=== PATIENT | male | born 1955 | race African-American/Black ===

== ENCOUNTER 2018-10-30 11:01 | Emergency (ER) | payer OTHER, MEDICARE ==
[~2018-10-30] VITALS: Ht 177.8 cm; Wt 111.6 kg
[2018-10-30 11:45] LABS: BASOPHILS % 0.1 % (0.0-1.0); HEMATOCRIT 39.2 % (38.2-49.6); HEMOGLOBIN 11.5 g/dL (14.0-18.0); LYMPHOCYTES # (AUTO) 1.2 (1.0-3.2); LYMPHOCYTES % 16.4 % (18.0-39.1); MEAN CORPUSCULAR HEMOGLOBIN 28.3 pg (28-32); MEAN CORPUSCULAR HGB CONC 29.3 g/dL (31-35); MEAN CORPUSCULAR VOLUME 96.6 fL (81-99); MONOCYTES # (AUTO) 0.7 (0.2-0.8); MONOCYTES % 9.4 % (4.4-11.3); NEUTROPHILS # (AUTO) 5.4 (2.1-6.9); NEUTROPHILS % 73.7 % (38.7-80.0); PLATELET COUNT 224 x10e3/uL (140-360); RED BLOOD COUNT 4.06 x10e6/uL (4.3-5.7); RED CELL DISTRIBUTION WIDTH 16.9 % (11.7-14.4)
--- NOTE | 2018-10-30 11:58 | Diagnostic Imaging Report ---
EXAMINATION: CHEST SINGLE (PORTABLE) INDICATION: Lower extremity swelling ^ERMD ORDER ^[id number] ^1140 ^Y COMPARISON: None FINDINGS: AP view TUBES and LINES: None. LUNGS: Limited by body habitus and low lung volumes. Enlarged hilar regions. PLEURA: No pleural effusion or pneumothorax. HEART AND MEDIASTINUM: The cardiomediastinal silhouette is enlarged on this AP view. BONES AND SOFT TISSUES: No acute osseous lesion. Soft tissues are unremarkable. UPPER ABDOMEN: No free air under the diaphragm. IMPRESSION: Enlarged bilateral hilar regions, accentuated by low lung volumes and technique, could be due to tortuous vessels, adenopathy, or peribronchovascular thickening/cuffing. Underlying infiltrate cannot be excluded. Signed by: Dr. Get Lyon MD on 10/30/2018 11:55 AM
[2018-10-30 12:23] LABS: INR 1.05; PROTHROMBIN TIME 14.6 seconds (11.9-14.5)
[2018-10-30 12:24] LABS: PARTIAL THROMBOPLASTIN TIME 24.8 seconds (23.8-35.5)
[2018-10-30 12:34] LABS: ALANINE AMINOTRANSFERASE 25 IU/L (0-55); ALBUMIN/GLOBULIN RATIO 0.8 (0.8-2.0); ALKALINE PHOSPHATASE 110 IU/L (40-150); ANION GAP 13.3 mmol/L (8-16); BLOOD UREA NITROGEN 19 mg/dL (7-26); BUN/CREATININE RATIO 24 (6-25); CALCIUM 8.9 mg/dL (8.4-10.2); CARBON DIOXIDE 26 mmol/L (22-29); CHLORIDE 113 mmol/L (98-107); CREATINE KINASE 41 IU/L (30-200); CREATININE, SERUM 0.79 mg/dL (0.72-1.25); EST GLOMERULAR FILTRATION RATE > 60 ML/MIN (60-); GLUCOSE 101 mg/dL (74-118); LIPASE 30 U/L (8-78); POTASSIUM 3.3 mmol/L (3.5-5.1); SODIUM 149 mmol/L (136-145)
[2018-10-30 12:43] LABS: BILIRUBIN,URINE NEGATIVE (NEGATIVE); CLARITY,URINE HAZY (CLEAR); COLOR,URINE YELLOW (YELLOW); KETONES,URINE NEGATIVE (NEGATIVE); LEUKOCYTE ESTERASE ,URINE NEGATIVE (NEGATIVE); NITRITE,URINE NEGATIVE (NEGATIVE); PROTEIN,URINE DIPSTICK TRACE (NEGATIVE); URINE UROBILINOGEN 4 mg/dL (0.2 - 1)
[2018-10-30 12:46] LABS: BACTERIA,URINE FEW /HPF; EPITHELIAL CELLS,URINE FEW /LPF; RBC,URINE 0-5 /HPF (0-5); WBC,URINE (MAN) 0-5 /HPF (0-5)
--- NOTE | 2018-10-30 12:59 | NUR ---
pt had bowel movement 1230
[2018-10-30] MEDS ORDERED: POTASSIUM CHLO20 ME1 PO (13:11)
[2018-10-30] MEDS ORDERED: Eliquis PO (13:11)
[2018-10-30] MEDS ORDERED: DETROL LA4 MG PO (13:11)
[2018-10-30] MEDS ORDERED: SINGULAIR10 MG PO (13:11)
[2018-10-30] MEDS ORDERED: OXYBUTYNIN CHLOR5 M1 PO (13:11)
[2018-10-30] MEDS ORDERED: MIRTAZAPINE15 MG PO (13:11)
[2018-10-30] MEDS ORDERED: PANTOPRAZOLE SO40 MG PO (13:11)
[2018-10-30] MEDS ORDERED: GABAPENTIN300 MG PO (13:11)
[2018-10-30] MEDS ORDERED: METOPROLOL SUCC25 MG PO (13:11)
[2018-10-30] MEDS ORDERED: FAMOTIDINE20 MG PO (13:11)
[2018-10-30] MEDS ORDERED: LISINOPRIL2.5 MG PO (13:11)
[2018-10-30] MEDS ORDERED: CLOPIDOGREL75 MG PO (13:15)
--- NOTE | 2018-10-30 13:43 | NUR ---
I spoke with Dr Lawrence Lopez at [facility] who accepts patient for transfer to telemetry bed. He called transfer center who called back at 1340 - I spoke with Nilsa who will work on getting bed and will call back when bed is available.
[2018-10-30] MEDS ORDERED: POTASSIUM CHLORIDE 20 MEQ TAB CR PO ONE (14:00)
[2018-10-30] MEDS ORDERED: FUROSEMIDE INJ 10 MG/ML 4 ML VIAL IV ONE (14:00)
[2018-10-30 15:12] VITALS: BP 150/87
== END 2018-10-30 14:45 | disposition short-term general hospital (02) ==
LOC: ER 11:06
DX: I50.9 Heart failure, unspecified (principal); I48.2 Chronic atrial fibrillation; E87.0 Hyperosmolality and hypernatremia; E87.6 Hypokalemia; Z86.718 Personal history of other venous thrombosis and embolism; Z95.828 Presence of other vascular implants and grafts; I25.2 Old myocardial infarction; J44.9 Chronic obstructive pulmonary disease, unspecified
CPT/HCPCS: 36415; 71045; 80053; 81001; 82550; 82553; 83690; 83880; 84484; 85025; 85610; 85730; 87086; 87186; 93005; 99285; J1940